=== PATIENT | male | born 1985 ===

== ENCOUNTER 2020-12-06 22:23 | Emergency (ER) | payer SELFPAY ==
[2020-12-06] MEDS ORDERED: Acetaminophen/HYDROcodone 325-10 MG Tab PO ONE ×2 (22:24→23:08)
--- NOTE | 2020-12-06 23:14 | EDM.PDOC ---
ED HPI GENERAL MEDICAL PROBLEM - General Chief Complaint: Lower Extremity Injury/Pain Stated Complaint: HURT LEFT ANKLE Time Seen by Provider: 12/06/20 23:02 Source of Information: Reports: Patient History Limitations: Reports: No Limitations - History of Present Illness INITIAL COMMENTS - FREE TEXT/NARRATIVE: This 35 yo male patient reports to the ED with left ankle and foot pain. The patient reports he was attempting to catch a frisbee when he ended up landing on a tree. The patient reports he heard a loud "crunch". The patient has notices swelling to the lateral ankle and foot. Onset: Today Duration: Minutes: Location: Reports: Lower Extremity, Left Quality: Reports: Ache, Dull, Throbbing Improves with: Reports: None Worsens with: Reports: None Context: Reports: Other Associated Symptoms: Reports: No Other Symptoms Left Ankle Pain Score (Numeric/FACES): 7 - Related Data Allergies Allergy/AdvReac Type Severity Reaction Status Date / Time No Known Allergies Allergy Verified 12/06/20 22:50 Home Meds: Home Meds . [No Known Home Meds] 07/19/18 [History] Past Medical History - Past Health History Medical/Surgical History: Denies Medical/Surgical History HEENT History: Reports: None Cardiovascular History: Reports: None Respiratory History: Reports: Asthma Gastrointestinal History: Reports: None Genitourinary History: Reports: None Musculoskeletal History: Reports: None Other Musculoskeletal History: Fx lex arms. and tenden on Rt. 4th finger. Neurological History: Reports: None Psychiatric History: Reports: None Endocrine/Metabolic History: Reports: None Hematologic History: Reports: None Immunologic History: Reports: None Oncologic (Cancer) History: Reports: None Dermatologic History: Reports: None - Infectious Disease History Infectious Disease History: Reports: Chicken Pox - Past Surgical History Head Surgeries/Procedures: Reports: None HEENT Surgical History: Reports: None Cardiovascular Surgical History: Reports: None Respiratory Surgical History: Reports: None GI Surgical History: Reports: None Male Surgical History: Reports: None Endocrine Surgical History: Reports: None Neurological Surgical History: Reports: None Musculoskeletal Surgical History: Reports: None Oncologic Surgical History: Reports: None Dermatological Surgical History: Reports: None Social & Family History - Family History Family Medical History: No Pertinent Family History - Tobacco Use Years of Tobacco use: 15 Packs/Tins Daily: 1 - Caffeine Use Caffeine Use: Reports: Coffee, None - Recreational Drug Use Recreational Drug Use: No Review of Systems - Review of Systems Review Of Systems: Comprehensive ROS is negative, except as noted in HPI. ED EXAM, GENERAL - Physical Exam Exam: See Below Exam Limited By: No Limitations General Appearance: Alert, WD/WN, No Apparent Distress Eye Exam: Bilateral Eye: EOMI, Normal Inspection, PERRL Ears: Normal External Exam, Normal Canal, Hearing Grossly Normal, Normal TMs Nose: Normal Inspection, Normal Mucosa, No Blood Throat/Mouth: Normal Inspection, Normal Lips, Normal Teeth, Normal Gums, Normal Oropharynx, Normal Voice, No Airway Compromise Head: Atraumatic, Normocephalic Neck: Normal Inspection, Supple, Non-Tender, Full Range of Motion Respiratory/Chest: No Respiratory Distress, Lungs Clear, Normal Breath Sounds, No Accessory Muscle Use, Chest Non-Tender Cardiovascular: Normal Peripheral Pulses, Regular Rate, Rhythm, No Edema, No Gallop, No JVD, No Murmur, No Rub GI/Abdominal: Normal Bowel Sounds, Soft, Non-Tender, No Organomegaly, No Distention, No Abnormal Bruit, No Mass (Male) Exam: Deferred Rectal (Males) Exam: Deferred Extremities: Leg Pain (left lateral ankle pain and swelling, left lateral foot swelling) Neurological: Alert, Oriented, CN II-XII Intact, Normal Cognition, Normal Gait, Normal Reflexes, No Motor/Sensory Deficits Psychiatric: Normal Affect, Normal Mood Skin Exam: Warm, Dry, Intact, Normal Color, No Rash Lymphatic: No Adenopathy Course - Vital Signs Last Recorded V/S: Last Vital Signs Temp 98 F 12/06/20 22:44 Pulse 80 12/06/20 22:44 Resp 20 12/06/20 22:44 BP 139/76 12/06/20 22:44 Pulse Ox 99 12/06/20 22:44 - Orders/Labs/Meds Meds: Medications Discontinued Medications Generic Name Dose Route Start Last Admin Trade Name Kate PRN Reason Stop Dose Admin Hydrocodone Bitart/Acetaminophen 1 tab 12/06/20 23:08 12/06/20 23:13 Acetaminophen/Hydrocodone 325-10 Mg Tab PO 12/06/20 23:09 1 tab ONETIME ONE Administration - Radiology Interpretation Free Text/Narrative:: [facility] Final Radiology Report Call: [phone] assistance Online chat: [email or web address] Name: MICHAEL BASILIO Age: 35Years M Date: 12/07/2020 SSN: -- : [id number] Study: CR FOOT COMP MIN 3V LT Requesting Physician: Gurinder Flores Images: 3 Addl Studies: Provided Clinical History: left ankle and foot pain Contrast: Contrast Medium: Contrast Amount: Contrast Method: CONFIDENTIALITY STATEMENT This report is intended only for use by the referring physician, and only in accordance with law. If you received this in error, call [phone]. Page 1 of 1 PROCEDURE INFORMATION: Exam: XR Left Foot Exam date and time: 12/07/2020 12:00 AM Age: 35 years old Clinical indication: Other: Landed wrong; Additional info: Left ankle and foot pain TECHNIQUE: Imaging protocol: XR Left foot. Views: 3 or more views. COMPARISON: No relevant prior studies available. FINDINGS: Bones/joints: Normal. Soft tissues: Normal. IMPRESSION: No acute findings. Thank you for allowing us to participate in the care of your patient. Dictated and Authenticated by: Pk Box MD 12/07/2020 1:22 AM Central Time ([place] & [place]) [facility] Final Radiology Report Call: [phone] assistance Online chat: [email or web address] Name: MICHAEL BASILIO Age: 35Years M Date: 12/06/2020 SSN: -- : [id number] Study: CR ANKLE MIN 3V LT Requesting Physician: Gurinder Flores Images: 3 Addl Studies: Provided Clinical History: left ankle and foot pain Contrast: Contrast Medium: Contrast Amount: Contrast Method: CONFIDENTIALITY STATEMENT This report is intended only for use by the referring physician, and only in accordance with law. If you received this in error, call [phone]. Page 1 of 1 PROCEDURE INFORMATION: Exam: XR Left Ankle Exam date and time: 12/06/2020 11:59 PM Age: 35 years old Clinical indication: Other: Landed wrong; Additional info: Left ankle and foot pain TECHNIQUE: Imaging protocol: XR Left ankle. Views: 3 or more views. COMPARISON: No relevant prior studies available. FINDINGS: Bones/joints: There is a tiny bony fragment at the tip of the medial malleolus. Distal fibula is intact. The talar dome is smooth. Mortise is preserved. No additional tibial abnormality seen. Soft tissues: There is diffuse mild soft tissue swelling. Possible ankle effusion. IMPRESSION: 1. Tiny fragment at the tip of the medial malleolus could reflect an acute avulsion fracture arising from the medial malleolus or the medial talus. 2. Soft tissue findings as described. 3. Consider MR. Thank you for allowing us to participate in the care of your patient. Dictated and Authenticated by: Pk Box MD 12/07/2020 1:24 AM Central Time ([place] & [place]) Departure - Departure Time of Disposition: 01:37 Disposition: Home, Self-Care 01 Condition: Fair Clinical Impression: Closed left ankle fracture Qualifiers: Encounter type: initial encounter Qualified Code(s): S82.892A - Other fracture of left lower leg, initial encounter for closed fracture Left ankle sprain Qualifiers: Encounter type: initial encounter Involved ligament of ankle: unspecified ligament Qualified Code(s): S93.402A - Sprain of unspecified ligament of left ankle, initial encounter - Discharge Information *PRESCRIPTION DRUG MONITORING PROGRAM REVIEWED*: Not Applicable *COPY OF PRESCRIPTION DRUG MONITORING REPORT IN PATIENT JAYA: Not Applicable Instructions: Crutch Use, Adult, [id number] Forms: ED Department Discharge Care Plan Goals: The patient was advised of the examination and x-ray results during the visit. The patient was placed in a walking boot for immobilization and a set of crutches to support his weight. The patient was given an oral dose of [place] while in the ED. The patient was discharged with an additional dose of [place] and a script for [place] (5/325) #10 to take 1 by mouth every 6 hours as needed for pain. The patient was encouraged to follow-up with his primary care facility next week for continued evaluation and further treatment. If the patient has any additional symptoms or concerns, the patient should either return to the emergency department or visit his primary care facility. Sepsis Event Note (ED) - Evaluation Sepsis Screening Result: No Definite Risk - Focused Exam Vital Signs: Vital Signs Temp Pulse Resp BP Pulse Ox 12/06/20 22:44 98 F 80 20 139/76 99
--- NOTE | 2020-12-07 01:22 | CR ---
PROCEDURE INFORMATION: Exam: XR Left Foot Exam date and time: 12/07/2020 12:00 AM Age: 35 years old Clinical indication: Other: Landed wrong; Additional info: Left ankle and foot pain TECHNIQUE: Imaging protocol: XR Left foot. Views: 3 or more views. COMPARISON: No relevant prior studies available. FINDINGS: Bones/joints: Normal. Soft tissues: Normal. IMPRESSION: No acute findings.
--- NOTE | 2020-12-07 01:25 | CR ---
PROCEDURE INFORMATION: Exam: XR Left Ankle Exam date and time: 12/06/2020 11:59 PM Age: 35 years old Clinical indication: Other: Landed wrong; Additional info: Left ankle and foot pain TECHNIQUE: Imaging protocol: XR Left ankle. Views: 3 or more views. COMPARISON: No relevant prior studies available. FINDINGS: Bones/joints: There is a tiny bony fragment at the tip of the medial malleolus. Distal fibula is intact. The talar dome is smooth. Mortise is preserved. No additional tibial abnormality seen. Soft tissues: There is diffuse mild soft tissue swelling. Possible ankle effusion. IMPRESSION: 1. Tiny fragment at the tip of the medial malleolus could reflect an acute avulsion fracture arising from the medial malleolus or the medial talus. 2. Soft tissue findings as described. 3. Consider MR.
[2020-12-07] MEDS ORDERED: Acetaminophen/HYDROcodone 325-10 MG Tab ONE (01:38)
== END 2020-12-07 01:50 | disposition home or self-care (01) ==
LOC: DL.ED 22:23
DX: S93.402A Sprain of unspecified ligament of left ankle, initial encounter (principal); X50.1XXA Overexertion from prolonged static or awkward postures, initial encounter
CPT/HCPCS: 73610; 73630; 99283; A9270